=== PATIENT | female | born 1985 | race Caucasian/White ===

== ENCOUNTER → 2024-03-01 20:09 | Outpatient (REF) | payer OTHER, SELFPAY | LOC: MRI 3T 20:09 | PROVIDERS: ATTENDING PHYSICIAN Obstetrics & Gynecology; FAMILY PHYSICIAN Nurse Practitioner Family | DX: Z03.89 Encounter for observation for other suspected diseases and conditions ruled out (principal) | CPT/HCPCS: 72197; A9575 ==

== ENCOUNTER → 2024-09-17 14:00 | Outpatient (REF) | payer OTHER, SELFPAY | LOC: HWRAD 14:00 | PROVIDERS: ATTENDING PHYSICIAN Obstetrics & Gynecology; FAMILY PHYSICIAN Nurse Practitioner Family | DX: Z34.01 Encounter for supervision of normal first pregnancy, first trimester (principal) | CPT/HCPCS: 76801 ==

== ENCOUNTER → 2024-10-07 11:30 | Outpatient (REF) | payer OTHER, SELFPAY | LOC: PNTC 11:30 | PROVIDERS: ATTENDING PHYSICIAN Obstetrics & Gynecology | DX: Z36.0 Encounter for antenatal screening for chromosomal anomalies (principal); Z36.82 Encounter for antenatal screening for nuchal translucency | CPT/HCPCS: 76801; 76813 ==

== ENCOUNTER → 2024-12-06 10:03 | Outpatient (REF) | payer OTHER, SELFPAY | LOC: PNTC 10:03 | PROVIDERS: ATTENDING PHYSICIAN Obstetrics & Gynecology | DX: O09.522 Supervision of elderly multigravida, second trimester (principal); O34.12 Maternal care for benign tumor of corpus uteri, second trimester; Z36.86 Encounter for antenatal screening for cervical length | CPT/HCPCS: 76811; 76817 ==

== ENCOUNTER 2025-01-04 18:41 | Emergency (ER) | payer OTHER, SELFPAY ==
[2025-01-04 19:05] VITALS: BP 102/67
[2025-01-04 19:14] LABS: Glucose - Point of Care 110 mg/dl (70-99)
[2025-01-04 19:46] LABS: Hematocrit 33.7 % (37.0-47.0); Hemoglobin 11.4 g/dL (12.0-16.0); Mean Corp Hgb Conc. 33.8 g/dL (33.0-37.0); Mean Corpuscular Volume 89.9 fL (81.0-99.0); Nucleated Red Blood Cells % 0 %; Platelet Count 317 10^3/uL (130-400); Red Cell Dist. Width 13.3 % (11.5-14.5)
[2025-01-04 20:11] LABS: ALT (SGPT) 11 U/L (0-35); AST (SGOT) 20 U/L (14-36); Albumin 4.1 g/dl (3.5-5.0); Alkaline Phosphatase 72 U/L (38-126); Blood Urea Nitrogen 7 mg/dl (7-17); Calcium 9.1 mg/dl (8.4-10.2); Carbon Dioxide 25 mmol/L (22-30); Chloride 102 mmol/L (98-107); Glucose 88 mg/dl (70-99); Potassium 4.1 mmol/L (3.5-5.1); Sodium 133 mmol/L (135-145); Total Protein 7.2 g/dl (6.3-8.2); eGFR > 60.00
[2025-01-04 22:45] VITALS: BP 99/63
[2025-01-04 22:47] VITALS: BMI 26.7
[2025-01-04 23:00] VITALS: BP 102/83
[2025-01-05] VITALS (7 sets, daily range): BP systolic 95–108; BP diastolic 64–77
--- NOTE | 2025-01-05 00:21 | ED.GENMED ---
History of Present Illness
General
Chief Complaint: Fainting/Passed Out
Source: patient and spouse
Exam Limitations: none
Time Seen by Provider: 01/04/25 23:57
Nursing documentation reviewed up to this point in time: agreed with
History of Present Illness
History of Present Illness:
39-year-old female, 2 para 0, six months , presents after syncopal episode. Around 6:00 PM while sitting in the passenger seat of her car, her was driving. Approximately 15 minutes into the car ride, she reported feeling
nauseous, described as 'my stomach in my throat' sensation but not to the point of vomiting. The patient communicated feeling unwell and feeling faint. states she nodded forward and was unresponsive for about 30 to 45 seconds and then she
came around and was alert and ambulated into the emergency department on arrival. She states she ate very little today, a half a bagel and a packet of fruit snacks.
She had 1 previous fainting episode in the dental office
She has felt movement since the episode.
She states she feels 'fine' now, 'just a little tired.'
Past History
Past History
ED Past Medical History: None
ED Past Surgical History: Gynecological (Fibroid removed)
Social History
Tobacco: Non-smoker
Alcohol: None
Personal:
Living: with family
Employment: Employed
Review of Systems
Review of Systems
Allergies reviewed?: Yes
All Other Systems: ROS reviewed and negative except as documented in HPI and ROS
Phy Exam
Physical Exam
Physical Exam:
GENERAL: No acute distress. A&Ox3.
CONSTITUTIONAL: Afebrile.
EYES: clear, conjunctivae normal
ENMT: moist mucus membranes, Pharynx nl
RESPIRATORY: Regular respirations, nonlabored, lungs clear.
CARDIOVASCULAR: Regular rate and rhythm, no murmurs, no rubs.
GI: Soft, nontender, normal BS, rotund consistent with 6 months . FHT 156
MUSCULOSKELETAL: Moves with ease. Well perfused.
SKIN: Warm, dry, pink
PSYCH: Normal mood and affect. Well kept, interactive and appropriate
NEUROLOGIC: Awake, alert and oriented. No focal neurological deficits
Course
Orders/Labs/Results
Orders:
Orders
01/04/25 18:42
Electrocardiogram (*1) Urgent
Reason for Study: Syncope
EKG- Treatment ONCE
01/04/25 19:26
Complete Blood Count/With Diff Urgent
Comprehensive Metabolic Panel Urgent
01/05/25 00:13
Orthostatic VS- Treatment ONCE
Abnormal Lab Results
01/04/25 01/04/25
19:12 19:26
RBC 3.75 L 10^6/uL
(4.20-5.40)
Hgb 11.4 L g/dL
(12.0-16.0)
Hct 33.7 L %
(37.0-47.0)
Absolute Neuts (auto) 7.3 H 10^3/uL
(1.4-6.5)
Neutrophils % 77.2 H %
(42.2-75.2)
Lymphocytes % 14.4 L %
(20.5-51.1)
Sodium 133 L mmol/L
(135-145)
Creatinine 0.5 L mg/dL
(0.6-1.0)
POC Glucose 110 H mg/dl
(70-99)
01/04/25 19:26
01/04/25 19:26
Vital Signs
Initial and Last Documented VS:
Initial Vital Signs
BP Pulse Ox
102/67 100
01/04/25 19:05 01/04/25 19:05
Last Documented Vital Signs
Temp Pulse Resp BP Pulse Ox
97.9 F 69 13 108/77 96
01/04/25 22:49 01/05/25 00:30 01/05/25 00:30 01/05/25 00:21 01/05/25 00:30
MDM/Problems Addressed
Differential Diagnosis Includes:
Vasovagal episode, hypoglycemia, orthostatic hypotension, dehydration
MDM/Problems Addressed:
39-year-old female, 2 para 0, six months , presents after syncopal episode. Around 6:00 PM while sitting in the passenger seat of her car, her was driving. Approximately 15 minutes into the car ride, she reported feeling
nauseous, described as 'my stomach in my throat' sensation but not to the point of vomiting. The patient communicated feeling unwell and feeling faint. states she nodded forward and was unresponsive for about 30 to 45 seconds and then she
came around and was alert and ambulated into the emergency department on arrival. She states she ate very little today, a half a bagel and a packet of fruit snacks.
She had 1 previous fainting episode in the dental office
She has felt movement since the episode.
She states she feels 'fine' now, 'just a little tired.'
EKG NSR heart rate 81
FHT 156
Orthostatics negative
Glucose 110
Lab work unremarkable
Patient states she is feeling much better, she has been out of bed and walking around, no dizziness or lightheadedness
Stable for discharge
*Pulse Oximetry
SaO2: 97
Oxygen Mode of Delivery: Room air
Patient hypoxic: no
*EKG
EKG Intrepretation Date: 01/05/25
Interpretation: normal
Heart Rate: 81
Rate: normal
Rhythm: sinus
Miranda: normal axis
Interval: normal interval
QRS Pattern: normal QRS
Ischemia: no ischemia
*Critical Care Note
Total Time (30-74mins, 75-104mins- exclusive of procedures): Not Applicable
ED Attending Note
-
Portions of this chart may have been created with voice recognition software.� Occasional wrong word or��sound alike� substitutions may have occurred due to the inherent limitations of voice recognition software.
Discharge Plan
Departure
Patient Disposition: Home (Routine Discharge)
Date of Disposition: 01/05/25
Time of Disposition: 00:31
Patient with high blood pressure during this ER visit?: No
Condition: Good
Discharge Problem:
Episode of syncope
Instructions: Syncope (Fainting) (DC)
Referrals:
Vimal Vital CRNP [Family Provider, Family Practice] - As needed
Activity Restrictions/Additional Instructions:
As we discussed, drink at least eight 8 ounce glasses of water/liquid daily
Your workup here tonight shows nothing worrisome.
Interventions
Interventions:
*Risk Screen - Suicide Last Done: 01/04/25 19:10
*General Assessment Last Done: 01/04/25 22:49
*Neglect/Abuse Screening Last Done: 01/04/25 19:10
*ED- Fall Risk Assessment Last Done: 01/04/25 22:49
*ED COVID-19 Vaccine History Last Done: 01/04/25 22:49
*Nursing Disposition Last Done: 01/05/25 00:40
ED- Cardiac Assessment Last Done: 01/04/25 22:49
ED- Neurological Assessment Last Done: 01/04/25 22:49
Discharge Date and Time
Discharge Date/Time: 01/05/25 00:41
Print Language: [place]
== END 2025-01-05 00:41 | disposition home or self-care (01) ==
LOC: EMR 18:41
PROVIDERS: Emergency Medicine; EMERGENCY PHYSICIAN Student in an Organized Health Care Education/Training Program; FAMILY PHYSICIAN Nurse Practitioner Family
DX: O99.891 Other specified diseases and conditions complicating pregnancy (principal); R55 Syncope and collapse; O09.529 Supervision of elderly multigravida, unspecified trimester; Z3A.00 Weeks of gestation of pregnancy not specified
CPT/HCPCS: 99284; 80053; 82962; 85025; 93005

== ENCOUNTER → 2025-01-17 11:07 | Outpatient (REF) | payer OTHER, SELFPAY | LOC: PNTC 11:07 | PROVIDERS: ATTENDING PHYSICIAN Obstetrics & Gynecology | DX: O09.529 Supervision of elderly multigravida, unspecified trimester (principal) | CPT/HCPCS: 76816 ==

== ENCOUNTER → 2025-03-02 09:36 | Outpatient (REF) | payer OTHER, SELFPAY | LOC: PNTC 09:36 | PROVIDERS: ATTENDING PHYSICIAN Student in an Organized Health Care Education/Training Program | DX: O09.523 Supervision of elderly multigravida, third trimester (principal) | CPT/HCPCS: 76816 ==

== ENCOUNTER → 2025-03-30 13:47 | Outpatient (REF) | payer OTHER, SELFPAY | LOC: PNTC 13:47 | PROVIDERS: ATTENDING PHYSICIAN Obstetrics & Gynecology | DX: O34.10 Maternal care for benign tumor of corpus uteri, unspecified trimester (principal) | CPT/HCPCS: 76816 ==

== ENCOUNTER 2025-04-29 09:35 | Inpatient (IN) | payer OTHER, SELFPAY ==
[2025-04-29 09:55] VITALS: BP 130/90; BMI 28.3
[2025-04-29 10:23] LABS: Hematocrit 32.2 % (37.0-47.0); Hemoglobin 11.1 g/dL (12.0-16.0); Mean Corp Hgb Conc. 34.5 g/dL (33.0-37.0); Mean Corpuscular Volume 88.7 fL (81.0-99.0); Nucleated Red Blood Cells % 0 %; Platelet Count 238 10^3/uL (130-400); Red Cell Dist. Width 13.7 % (11.5-14.5)
[2025-04-29 10:36] LABS: ALT (SGPT) 14 U/L (0-35); AST (SGOT) 25 U/L (14-36); Albumin 3.4 g/dl (3.5-5.0); Alkaline Phosphatase 179 U/L (38-126); Blood Urea Nitrogen 10 mg/dl (7-17); Calcium 8.8 mg/dl (8.4-10.2); Carbon Dioxide 22 mmol/L (22-30); Chloride 105 mmol/L (98-107); Estimated Creatinine Clearance 111 ml/min; Glucose 86 mg/dl (70-99); Potassium 4.3 mmol/L (3.5-5.1); Sodium 132 mmol/L (135-145); Total Protein 6.3 g/dl (6.3-8.2); eGFR > 60.00
[2025-04-29 10:52] LABS: Urine Character Clear (Clear)
[2025-04-29] MEDS: CYTOTEC 25 MICROGRAM VAG (16:10)
[2025-04-29] MEDS: CYTOTEC 50 MICROGRAM PO (20:08)
[2025-04-29] MEDS: LR 1000 IV (20:24)
[2025-04-29] MEDS: BRETHINE 250 MCG SC (21:00)
[2025-04-29] MEDS: PRENATAL PLUS 1 TABLET PO (22:44)
[2025-04-29] MEDS: FEOSOL 325 MG PO (22:45)
[2025-04-29] MEDS: VALTREX 500 MG PO (22:46)
[2025-04-30] MEDS: CYTOTEC PO ×4 (00:10→17:32)
[2025-04-30] MEDS: LR 1000 IV ×2 (04:40→19:43)
[2025-04-30] MEDS: CYTOTEC 50 MICROGRAM PO (09:40)
[2025-04-30] MEDS: STADOL 1 MG IV (10:22)
[2025-04-30] MEDS: VALTREX 500 MG PO (19:44)
[2025-04-30] MEDS: PITOCIN 30 UNITS/NSS 500 ML IV (19:44)
[2025-04-30] MEDS: PRENATAL PLUS 1 TABLET PO (21:55)
[2025-04-30] MEDS: FEOSOL 325 MG PO (21:55)
[2025-05-01] MEDS: FENTANYL/BUPIVACAINE 100 EPIDURAL ×2 (00:12→07:55)
[2025-05-01] MEDS: SUBLIMAZE 100 MCG EPIDURAL (00:12)
[2025-05-01] MEDS: LR 1000 IV ×2 (03:10→07:57)
[2025-05-01] MEDS: VALTREX PO (07:58)
[2025-05-01] MEDS: TRANEXAMIC ACID 100 IV (11:40)
[2025-05-01] MEDS: PITOCIN 30 UNITS/NSS 500 ML IV (12:06)
[2025-05-01 12:12] LABS: Cord VBG B.E. - POC -5.4 mmol/L; Cord VBG HCO3 - POC 21 mmol/L; Cord VBG O2 Sat % - POC 50.7 %; Cord VBG pCO2 - POC 41 mmHg; Cord VBG pH - POC 7.31; Cord VBG pO2 - POC 30 mmHg
[2025-05-01] MEDS: MOTRIN 600 MG PO ×2 (13:14→19:15)
[2025-05-01] MEDS: TYLENOL 650 MG PO ×3 (14:42→23:52)
[2025-05-01] MEDS: COLACE 100 MG PO (21:01)
[2025-05-01] MEDS: PRENATAL PLUS 1 TABLET PO (21:01)
[2025-05-01] MEDS: FEOSOL 325 MG PO (21:01)
[2025-05-02] MEDS: MOTRIN 600 MG PO ×3 (01:17→18:23)
[2025-05-02] MEDS: TYLENOL 650 MG PO ×3 (04:42→18:23)
[2025-05-02 05:01] LABS: Hematocrit 30.0 % (37.0-47.0); Hemoglobin 10.2 g/dL (12.0-16.0)
[2025-05-02 07:42] LABS: Cord ABG B.E. - POC -5.5 mmol/L; Cord ABG HCO3 - POC 23 mmol/L; Cord ABG pCO2 - POC 53 mmHg; Cord ABG pH - POC 7.24; Cord ABG pO2 - POC < 18 mmHg
[2025-05-02] MEDS: COLACE 100 MG PO ×2 (09:08→21:36)
[2025-05-02] MEDS: PRENATAL PLUS 1 TABLET PO (21:36)
[2025-05-02] MEDS: FEOSOL 325 MG PO (21:36)
[2025-05-03] MEDS: TYLENOL 650 MG PO ×3 (01:14→14:05)
[2025-05-03] MEDS: MOTRIN 600 MG PO ×3 (01:14→14:05)
[2025-05-03] MEDS: COLACE 100 MG PO (07:59)
[2025-05-03 13:39] LABS: Syphilis/T. pallidum Ab Reflex Negative (Negative)
== END 2025-05-03 15:17 | disposition home or self-care (01) | DRG 806 ==
LOC: LDRP 09:35
PROVIDERS: Obstetrics & Gynecology; ADMITTING PHYSICIAN Obstetrics & Gynecology; FAMILY PHYSICIAN Nurse Practitioner Family
PROC: 3E033VJ Introduction of Other Hormone into Peripheral Vein, Percutaneous Approach (ICD-10-PCS; 2025-04-29)
PROC: 3E0P7VZ Introduction of Hormone into Female Reproductive, Via Natural or Artificial Opening (ICD-10-PCS; 2025-04-29)
PROC: 10907ZC Drainage of Amniotic Fluid, Therapeutic from Products of Conception, Via Natural or Artificial Opening (ICD-10-PCS; 2025-04-30)
PROC: 0U7C7DJ Dilation of Cervix with Intraluminal Device, Temporary, Via Natural or Artificial Opening (ICD-10-PCS; 2025-04-30)
PROC: 10H07YZ Insertion of Other Device into Products of Conception, Via Natural or Artificial Opening (ICD-10-PCS; 2025-05-01)
PROC: 0UQMXZZ Repair Vulva, External Approach (ICD-10-PCS; 2025-05-01)
PROC: 0KQM0ZZ Repair Perineum Muscle, Open Approach (ICD-10-PCS; 2025-05-01)
PROC: 10D07Z3 Extraction of Products of Conception, Low Forceps, Via Natural or Artificial Opening (ICD-10-PCS; 2025-05-01)
PROC: 3E0E77Z Introduction of Electrolytic and Water Balance Substance into Products of Conception, Via Natural or Artificial Opening (ICD-10-PCS; 2025-05-01)
PROC: 6A550ZT Pheresis of Cord Blood Stem Cells, Single (ICD-10-PCS; 2025-05-01)
DX: O48.0 Post-term pregnancy (principal); O98.52 Other viral diseases complicating childbirth; Z37.0 Single live birth; Z3A.41 41 weeks gestation of pregnancy; O70.1 Second degree perineal laceration during delivery; O76 Abnormality in fetal heart rate and rhythm complicating labor and delivery; O69.81X0 Labor and delivery complicated by cord around neck, without compression, not applicable or unspecified; O40.3XX0 Polyhydramnios, third trimester, not applicable or unspecified; O34.13 Maternal care for benign tumor of corpus uteri, third trimester; D25.9 Leiomyoma of uterus, unspecified; O43.123 Velamentous insertion of umbilical cord, third trimester; B00.1 Herpesviral vesicular dermatitis; O14.04 Mild to moderate pre-eclampsia, complicating childbirth; O90.81 Anemia of the puerperium; D64.9 Anemia, unspecified; Z62.810 Personal history of physical and sexual abuse in childhood; Z87.820 Personal history of traumatic brain injury
CPT/HCPCS: 36415; 76815; 80053; 81003; 82570; 84156; 85014; 85018; 85025; 86780; 86850; 86900; 86901